=== PATIENT | female | born 1955 | race African-American/Black ===

== ENCOUNTER 2016-09-04 01:24 | Emergency (ER) | payer MEDICAID, MEDICARE ==
[~2016-09-04] VITALS: Ht 167.6 cm; Wt 110.0 kg
[~2016-09-04 01:24] MED LIST: COMBIH IH; IBUP-1547 PO; LISI40TA4 PO; OXYC-158 PO; SYMB8060 IH
[2016-09-04 01:34] VITALS: BP 158/84
[2016-09-04] MEDS ORDERED: AMLO2.5T PO (01:50)
[2016-09-04] MEDS ORDERED: HYDR25TA PO (01:50)
[2016-09-04] MEDS ORDERED: METO-323 PO (01:50)
[2016-09-04] MEDS ORDERED: PERCT10 PO (01:50)
[2016-09-04] MEDS ORDERED: HYDROCODONE/ACETAMINOPHEN 10-325 MG TABLET PO ONE (02:15)
[2016-09-04] MEDS ORDERED: FentaNYL CITRATE-PF 100 MCG/2 ML VIAL IM ONE (03:00)
== END 2016-09-04 03:47 | disposition home or self-care (01) ==
LOC: EMS 01:25
DX: M23.92 Unspecified internal derangement of left knee (principal); I10 Essential (primary) hypertension; J44.9 Chronic obstructive pulmonary disease, unspecified; G43.909 Migraine, unspecified, not intractable, without status migrainosus; F17.210 Nicotine dependence, cigarettes, uncomplicated; Z88.5 Allergy status to narcotic agent; Z88.8 Allergy status to other drugs, medicaments and biological substances
CPT/HCPCS: 29505; 73562; 96372; 99284; J3010; 29530

== ENCOUNTER 2016-10-26 18:43 | Emergency (ER) | payer MEDICARE, MEDICAID ==
[~2016-10-26] VITALS: Ht 165.1 cm; Wt 109.0 kg
[~2016-10-26 18:43] MED LIST changes: +AMLO2.5T PO; +HYDR25TA PO; -IBUP-1547 PO; +IBUP-2077 PO; +METO25XL PO; -OXYC-158 PO; +PERCT10 PO
[2016-10-26] MEDS ORDERED: DIPH25 PO (19:01)
[2016-10-26] MEDS ORDERED: ZOLP5 PO (19:01)
[2016-10-26] MEDS ORDERED: QUET200T PO (19:01)
[2016-10-26] MEDS ORDERED: CARI350 PO (19:01)
[2016-10-26] MEDS ORDERED: ONDANSETRON HCL 4 MG/2 ML VIAL IVP ONE (19:30)
[2016-10-26] MEDS ORDERED: MORPHINE SULFATE 2 MG/ML SYRINGE IVP ONE (19:30)
[2016-10-26] MEDS ORDERED: DiphenhydrAMINE HCL 50 MG/ML VIAL IVP ONE (19:30)
[2016-10-26 20:50] VITALS: BP 160/77
[2016-10-26] MEDS ORDERED: LORazepam 1 MG TABLET PO ONE (21:45)
== END 2016-10-26 21:28 | disposition home or self-care (01) ==
LOC: EMS 18:44
DX: M54.5 Low back pain (principal); J06.9 Acute upper respiratory infection, unspecified; G89.29 Other chronic pain; J44.9 Chronic obstructive pulmonary disease, unspecified; I10 Essential (primary) hypertension; G43.909 Migraine, unspecified, not intractable, without status migrainosus; F17.210 Nicotine dependence, cigarettes, uncomplicated; Z88.8 Allergy status to other drugs, medicaments and biological substances
CPT/HCPCS: 71010; 96374; 96375; 99284; 99406; J1200; J2270; J2405

== ENCOUNTER 2017-01-07 13:26 | Emergency (ER) | payer MEDICARE, MEDICAID ==
[~2017-01-07] VITALS: Ht 165.1 cm; Wt 110.0 kg
[~2017-01-07 13:26] MED LIST changes: +CARI350 PO; +DIPH25 PO; +QUET200T PO; +ZOLP5 PO
[2017-01-07] MEDS ORDERED: HydrOXYzine PAMOATE 50 MG CAPSULE PO ONE (14:15)
[2017-01-07] MEDS ORDERED: HYDROmorphone 2 MG/ML SYRINGE IM ONE (14:15)
[2017-01-07 14:42] VITALS: BP 158/99
== END 2017-01-07 15:10 | disposition home or self-care (01) ==
LOC: EMS 13:27
DX: M25.522 Pain in left elbow (principal); I10 Essential (primary) hypertension; J44.9 Chronic obstructive pulmonary disease, unspecified; G43.909 Migraine, unspecified, not intractable, without status migrainosus; F17.210 Nicotine dependence, cigarettes, uncomplicated; G89.29 Other chronic pain; Z88.8 Allergy status to other drugs, medicaments and biological substances
CPT/HCPCS: 96372; 99283; J1170

== ENCOUNTER 2017-07-30 16:52 | Emergency (ER) | payer MEDICARE, MEDICAID ==
[~2017-07-30] VITALS: Ht 165.1 cm; Wt 109.1 kg
[2017-07-30] MEDS ORDERED: MORPHINE SULFATE 4 MG/ML SYRINGE IVP ONE (17:45)
[2017-07-30] MEDS ORDERED: ONDANSETRON HCL 4 MG/2 ML VIAL IVP ONE (17:45)
[2017-07-30 19:00] LABS: BASOPHILS % (AUTO) 0.7 % (0.0-2.0); EOSINOPHILS % (AUTO) 1.3 % (1.0-6.0); HEMOGLOBIN 12.6 g/dL (12.0-16.0); LYMPHOCYTES # (AUTO) 3.2 K/uL (1.0-4.8); MEAN CORPUSCULAR HEMOGLOBIN 33.1 pg (26.0-34.0); MEAN CORPUSCULAR HGB CONC 34.2 G/dL (31.0-37.0); MEAN CORPUSCULAR VOLUME 97 fL (80-100); MONOCYTES # (AUTO) 0.5 K/uL (0.1-1.0); MONOCYTES % (AUTO) 6.4 % (2.0-9.0); NEUTROPHILS # (AUTO) 3.9 K/uL (1.8-7.7); NEUTROPHILS % (AUTO) 50.6 % (40.0-70.0); PLATELET COUNT (AUTO) 257 K/uL (150-450); RED BLOOD CELL COUNT(AUTO) 3.82 MIL/uL (4.00-5.20); RED CELL DISTRIBUTION WIDTH 14.5 % (11.5-14.5)
[2017-07-30] MEDS ORDERED: LORazepam 2 MG/ML VIAL IVP ONE (19:00)
[2017-07-30] MEDS ORDERED: SODIUM CHLORIDE 0.9% 1,000 ML IV ONE (19:00)
[2017-07-30] MEDS ORDERED: MORPHINE SULFATE 2 MG/ML SYRINGE IVP ONE (19:00)
[2017-07-30 19:10] LABS: ANION GAP 7 mmol/L (8-16); CALCIUM, TOTAL 8.6 mg/dL (8.8-10.5); CARBON DIOXIDE 29 mmol/L (22-29); CHLORIDE 107 mmol/L (98-107); CREATININE 0.79 mg/dL (0.60-1.30); GLOMERULAR FILTR. RATE CALC > 60 mL/min (>60); GLUCOSE,RANDOM 108 mg/dL (70-110); SODIUM SERUM 143 mmol/L (136-145); UREA NITROGEN, BLOOD 10 mg/dL (7-18)
[2017-07-30 19:34] LABS: ALANINE AMINOTRANSFERASE 36 U/L (12-78); ALBUMIN 3.1 g/dL (3.4-5.0); ALKALINE PHOSPHATASE 170 U/L (46-116); ASPARTATE AMINOTRANSFERASE 26 U/L (15-37); B-TYPE NATRIURETIC PEPTIDE 103 pg/mL (0-100); BILIRUBIN,TOTAL 0.2 mg/dL (0.1-1.0); CREATINE KINASE MB 1.1 ng/mL (0-5); CREATINE KINASE, TOTAL 113 U/L (26-192); TOTAL PROTEIN, SERUM 7.1 g/dL (6.4-8.2)
[2017-07-30 21:52] VITALS: BP 109/82
== END 2017-07-30 21:50 | disposition home or self-care (01) ==
LOC: EMS 16:53
DX: S20.219A Contusion of unspecified front wall of thorax, initial encounter (principal); J44.9 Chronic obstructive pulmonary disease, unspecified; I10 Essential (primary) hypertension; G43.909 Migraine, unspecified, not intractable, without status migrainosus; G89.29 Other chronic pain; F17.210 Nicotine dependence, cigarettes, uncomplicated; Z88.8 Allergy status to other drugs, medicaments and biological substances; V49.9XXA Car occupant (driver) (passenger) injured in unspecified traffic accident, initial encounter; Y93.89 Activity, other specified; Y92.89 Other specified places as the place of occurrence of the external cause; Y99.8 Other external cause status
CPT/HCPCS: 71250; 80053; 82550; 82553; 83880; 84484; 85025; 93005; 96374; 96375; 99285; J2060; J2270 ×2; J2405